=== PATIENT | female | born 1990 | race Caucasian/White ===

== ENCOUNTER 2016-09-06 21:03 | Emergency (ER) | payer OTHER ==
[~2016-09-06 21:03] MED LIST: ALBUTEROL 0.5ML IH; BACTRIM DS TABL1 TA1 PO; HYDROCODONE-APA1 T61 PO; PREDNISONE50 MG PO; PYRIDIUM100 MG PO; SUBOXONE 8 MG-1 EAC1 SL; SUBOXONE SL
== END 2016-09-06 21:10 | disposition left against medical advice (07) ==
LOC: CED 21:03
DX: Z53.21 Procedure and treatment not carried out due to patient leaving prior to being seen by health care provider (principal)